=== PATIENT | male | born 1950 ===

== ENCOUNTER 2018-07-07 06:15 | Day surgery (SDC) | payer MEDICARE ==
[2018-07-06 13:24] VITALS: BMI 21.9
[2018-07-07 06:37] VITALS: O2SAT 100
[2018-07-07] MEDS ORDERED: Dextrose 50% SYRINGE Inj (50 ml) ONE (06:42)
[2018-07-07] MEDS ORDERED: Lidocaine Hydrochloride 5 ML INJ ONE (08:39)
[2018-07-07] MEDS ORDERED: Propofol 10 mg/ml Inj (20 ML) ONE ×2 (08:39→08:58)
[2018-07-07 10:23] VITALS: BP 131/76
[2018-07-07 10:30] VITALS: PULSE 78; RESP 14; TEMP 97.4
== END 2018-07-07 10:15 | disposition home or self-care (01) ==
LOC: C.ENDO 06:15
PROVIDERS: ATTEND Internal Medicine Gastroenterology
DX: Z12.11 Encounter for screening for malignant neoplasm of colon (principal); D12.3 Benign neoplasm of transverse colon; K63.89 Other specified diseases of intestine; K57.30 Diverticulosis of large intestine without perforation or abscess without bleeding; K64.1 Second degree hemorrhoids; I10 Essential (primary) hypertension; E11.9 Type 2 diabetes mellitus without complications
CPT/HCPCS: 45380; 82948; 88305; J2704